=== PATIENT | male | born 1990 ===

== ENCOUNTER 2020-01-17 14:14 | Emergency (ER) | payer SELFPAY ==
[2020-01-17 14:47] VITALS: BP 150/78
--- NOTE | 2020-01-17 16:27 | Emergency Department Report ---
ED General Adult HPI - General Chief complaint: Dental/Oral Stated complaint: TOOTH PAIN Time Seen by Provider: 01/17/20 16:06 Source: patient Mode of arrival: Ambulatory Limitations: No Limitations - History of Present Illness Initial comments: 29-year-old -Tong[place] male patient presents with complaints of right upper dental pain x 9 days. Patient states at the start of his symptoms he was seen at [facility] ED and received a prescription for penicillin. Patient states his symptoms improved with the penicillin, however once he finished the p rescription 2 days ago his symptoms began to worsen. He rates his pain as a 8/10 in severity. He does report he is in the process of making a follow-up appointment with a dental specialist. He denies any fever/chills/sweats, facial swelling, or difficulty swallowing. -: Sudden - Related Data Previous Rx's Medication Instructions Recorded Last Taken Type Clindamycin [Clindamycin CAP] 300 mg PO Q6H 10 Days #40 capsule 01/17/20 Unknown Rx Ibuprofen [Motrin 800 MG tab] 800 mg PO Q8HR PRN #21 tablet 01/17/20 Unknown Rx Allergies Allergy/AdvReac Type Severity Reaction Status Date / Time No Known Allergies Allergy Unverified 01/17/20 14:46 ED Review of Systems ROS: Stated complaint: TOOTH PAIN Other details as noted in HPI Constitutional: denies: chills, fever ENT: dental pain. denies: throat pain Respiratory: denies: cough Gastrointestinal: denies: nausea, vomiting Skin: denies: rash, lesions Neurological: denies: headache ED Past Medical Hx - Social History Smoking Status: Never Smoker Substance Use Type: None - Medications Home Medications: Home Medications Medication Instructions Recorded Confirmed Last Taken Type Clindamycin [Clindamycin CAP] 300 mg PO Q6H 10 Days #40 capsule 01/17/20 Unknown Rx Ibuprofen [Motrin 800 MG tab] 800 mg PO Q8HR PRN #21 tablet 01/17/20 Unknown Rx ED Physical Exam - General Limitations: No Limitations General appearance: alert, in no apparent distress - Head Head exam: Present: atraumatic, normocephalic - Eye Eye exam: Present: normal appearance - Expanded ENT Exam Expanded Mouth exam: Absent: drooling, trismus, muffled voice Teeth exam: Present: dental caries 1 - Dental Tenderness (Deep dental caries noted with mild surrounding erythema, no swelling noted to gums or face) Throat exam: Negative: tonsillar erythema, tonsillomegaly - Neck Neck exam: Present: normal inspection. Absent: lymphadenopathy - Respiratory Respiratory exam: Absent: respiratory distress - Cardiovascular Cardiovascular Exam: Present: regular rate - Neurological Exam Neurological exam: Present: alert, oriented X3 - Psychiatric Psychiatric exam: Present: normal affect, normal mood - Skin Skin exam: Present: warm, dry, intact, normal color. Absent: rash ED Course Vital Signs 01/17/20 14:38 Temperature 98.0 F Pulse Rate 79 Respiratory 18 Rate Blood Pressure 150/78 O2 Sat by Pulse 100 Oximetry ED Medical Decision Making - Medical Decision Making Patient here with worsening right upper dental pain after finishing a penicillin prescription for dental infection. Given failure on penicillin, clindamycin prescribed and patient informed to follow-up immediately with his dental specialist. His vitals are normal, he is well-appearing, and stable for discharge home. Strict return precautions were discussed in detail with patient verbalizes understanding. Critical care attestation.: If time is entered above; I have spent that time in minutes in the direct care of this critically ill patient, excluding procedure time. ED Disposition Clinical Impression: Dental infection, Dental caries Disposition: DC-01 TO HOME OR SELFCARE Is pt being admited?: No Condition: Stable Instructions: Toothache (ED), Dental Abscess (ED) Additional Instructions: Please follow-up with your dental specialist within 2 days. Prescriptions: Clindamycin [Clindamycin CAP] 300 mg PO Q6H 10 Days #40 capsule Ibuprofen [Motrin 800 MG tab] 800 mg PO Q8HR PRN #21 tablet PRN Reason: pain
== END 2020-01-17 18:44 | disposition home or self-care (01) ==
LOC: ED 14:14
DX: K02.9 Dental caries, unspecified (principal)
CPT/HCPCS: 99282

== ENCOUNTER 2020-03-27 05:57 | Emergency (ER) | payer MEDICARE ==
[2020-03-27 07:33] VITALS: BP 142/89
[2020-03-27 07:58] LABS: Basophils % (Auto) 0.7 % (0.0-1.8); Eosinophils % (Auto) 0.9 % (0.0-4.3); Hematocrit 45.5 % (35.5-45.6); Hemoglobin 15.8 gm/dl (11.8-15.2); Lymphocytes # (Auto) 2.1 K/mm3 (1.2-5.4); Lymphocytes % (Auto) 40.2 % (13.4-35.0); Mean Corpuscular HGB Conc 35 % (32-34); Mean Corpuscular Volume 91 fl (84-94); Monocytes # (Auto) 0.7 K/mm3 (0.0-0.8); Monocytes % (Auto) 13.8 % (0.0-7.3); Platelet Count 162 K/mm3 (140-440); Red Blood Count 4.99 M/mm3 (3.65-5.03); Red Cell Distribution Width 14.1 % (13.2-15.2)
[2020-03-27 08:19] LABS: BUN/Creatinine Ratio 5; Blood Urea Nitrogen 5 mg/dL (9-20); Calcium 9.3 mg/dL (8.4-10.2); Hemolysis Index 10
[2020-03-27] MEDS ORDERED: LORazepam 2 MG/ML VIAL IM PRN (09:11)
[2020-03-27] MEDS ORDERED: ZIPRASIDONE MESYLATE 20 MG VIAL IM PRN (09:11)
--- NOTE | 2020-03-27 09:12 | Emergency Department Report ---
ED General Adult HPI - General Chief complaint: Psych Stated complaint: MH EVALUATION PUI?: No Time Seen by Provider: 03/27/20 09:04 Source: patient, RN notes reviewed Mode of arrival: Ambulatory Limitations: No Limitations - History of Present Illness Initial comments: The patient was evaluated in the emergency department for symptoms described in the history of present illness. He/she was evaluated in the context of the [facility] COVID-19 pandemic, which necessitated consideration that the patient might be at risk for infection with the virus that causes COVID-19. Institutional protocols and algorithms that pertain to the evaluation of patients at risk for COVID-19 are in a state of rapid change based on information released by regulatory bodies including the CDC and federal and state organizations. These policies and algorithms were followed during the patient's care in the emergency department. Please note that these policies, procedures and recommendations changed on a rapid basis. The patient is a 29-year-old gentleman. He is not known to myself previously. He has a history of paranoid schizophrenia. He presents to the ER today with complaint of painless auditory hallucinations, and wanting to kill himself. He denies physical pain. He denies access to guns, firearms. He denies loss of taste, loss of smell, cough, urinary symptoms, exposure to Covid. He denies intentional overdose. Symptoms present for the past day or so. They are constant, painless, do not radiate anywhere, and he endorses no exacerbating or relieving factors. He reports that he drove himself here in his own vehicle. He denies any stressors that he can recall. -: Gradual, days(s) Consistency: constant Improves with: none Worsens with: none Associated Symptoms: denies other symptoms - Related Data Home Medications Medication Instructions Recorded Confirmed Last Taken ALPRAZolam [Xanax TAB] 0.25 mg 03/27/20 Unknown risperiDONE [RisperDAL] 1 mg PO 03/27/20 Unknown Allergies Allergy/AdvReac Type Severity Reaction Status Date / Time No Known Allergies Allergy Unverified 01/17/20 14:46 ED Review of Systems ROS: Stated complaint: MH EVALUATION Other details as noted in HPI Comment: All other systems reviewed and negative Psychiatric: auditory hallucinations, suicidal thoughts. denies: visual hallucinations, homicidal thoughts ED Past Medical Hx - Past Medical History Previous Medical History?: Yes Hx Psychiatric Treatment: Yes (paranoid schizophrenia) - Surgical History Past Surgical History?: No - Social History Smoking Status: Never Smoker Substance Use Type: None - Medications Home Medications: Home Medications Medication Instructions Recorded Confirmed Last Taken Type ALPRAZolam [Xanax TAB] 0.25 mg 03/27/20 Unknown History risperiDONE [RisperDAL] 1 mg PO 03/27/20 Unknown History ED Physical Exam - General Limitations: No Limitations General appearance: alert, in no apparent distress - Head Head exam: Present: atraumatic, normocephalic - Eye Eye exam: Present: normal appearance, EOMI. Absent: nystagmus - ENT ENT exam: Present: normal exam, normal orophraynx, mucous membranes moist, normal external ear exam - Neck Neck exam: Present: normal inspection, full ROM. Absent: tenderness, meningismu s - Respiratory Respiratory exam: Present: normal lung sounds bilaterally. Absent: respiratory distress, wheezes, rales, rhonchi, stridor, decreased breath sounds - Cardiovascular Cardiovascular Exam: Present: regular rate, normal rhythm, normal heart sounds. Absent: bradycardia, tachycardia, irregular rhythm, systolic murmur, diastolic murmur, rubs, gallop - GI/Abdominal GI/Abdominal exam: Present: soft, normal bowel sounds. Absent: distended, tenderness, guarding, rebound, rigid, pulsatile mass - Rectal Rectal exam: Present: deferred - Extremities Exam Extremities exam: Present: normal inspection, full ROM, other (2+ pulses noted in the bilateral upper and lower extremities. There is no palpable cord. negative Homans sign. Muscular compartments are soft. The pelvis is stable.). Absent: pedal edema, calf tenderness - Back Exam Back exam: Present: normal inspection, full ROM, CVA tenderness (R). Absent: tenderness, CVA tenderness (L), paraspinal tenderness, vertebral tenderness - Neurological Exam Neurological exam: Present: alert, normal gait, other (No facial droop. Tongue midline. Extraocular movements intact bilaterally. Facial sensation intact to light touch in V1, V2, V3 distribution bilaterally. 5 and a 5 strength in 4 extremities. Sensation intact to light touch in 4 extremities.). Absent: motor sensory deficit - Psychiatric Psychiatric exam: Present: flat affect, suicidal ideation. Absent: homicidal ideation - Skin Skin exam: Present: warm, dry, intact, normal color. Absent: rash ED Course Vital Signs 03/27/20 03/27/20 07:30 09:37 Temperature 97.7 F Pulse Rate 64 Respiratory 24 18 Rate Blood Pressure 142/89 O2 Sat by Pulse 100 99 Oximetry ED Medical Decision Making - Lab Data Result diagrams: 03/27/20 07:46 03/27/20 07:46 Vital Signs 03/27/20 03/27/20 07:30 09:37 Temperature 97.7 F Pulse Rate 64 Respiratory 24 18 Rate Blood Pressure 142/89 O2 Sat by Pulse 100 99 Oximetry Labs 03/27/20 03/27/20 03/27/20 07:46 07:46 07:46 WBC RBC Hgb Hct MCV MCH MCHC RDW Plt Count Lymph % (Auto) [place] % (Auto) Eos % (Auto) Baso % (Auto) Lymph # (Auto) [place] # (Auto) Eos # (Auto) Baso # (Auto) Seg Neutrophils % Seg Neutrophils # Sodium 141 Potassium 4.2 Chloride 102.3 Carbon Dioxide 29 Anion Gap 14 BUN 5 L Creatinine 1.0 Estimated GFR > 60 BUN/Creatinine Ratio 5 Glucose 89 Calcium 9.3 Salicylates < 0.3 L Acetaminophen 5.0 L Plasma/Serum Alcohol 03/27/20 03/27/20 07:46 07:46 WBC 5.1 RBC 4.99 Hgb 15.8 H Hct 45.5 MCV 91 MCH 32 MCHC 35 H RDW 14.1 Plt Count 162 Lymph % (Auto) 40.2 H [place] % (Auto) 13.8 H Eos % (Auto) 0.9 Baso % (Auto) 0.7 Lymph # (Auto) 2.1 [place] # (Auto) 0.7 Eos # (Auto) 0.0 Baso # (Auto) 0.0 Seg Neutrophils % 44.4 Seg Neutrophils # 2.3 Sodium Potassium Chloride Carbon Dioxide Anion Gap BUN Creatinine Estimated GFR BUN/Creatinine Ratio Glucose Calcium Salicylates Acetaminophen Plasma/Serum Alcohol < 0.01 - Medical Decision Making Differential diagnosis, including but not limited to: Suicidal ideation, auditory hallucinations, paranoid schizophrenia, medical clearance for psychiatric placement Assessment and plan: 29-year-old gentleman, who was afebrile, with reassuring vital signs, clinically sober, with a GCS of 15, unremarkable physical examination, unremarkable neurologic examination, with a complaint of auditory hallucinations and suicidality. Physical exam benign, screening laboratory studies negative for emergent toxicologic/metabolic insult. Denies cough, fever, urinary symptoms. Urinalysis pending at this time, as part of our typical psychiatry protocol, however, clinically, I do not suspect a urinary tract infection. A psychiatric consultation is requested. I have also requested that nursing team reconcile patient's medications. At this point in time, patient does not appear to have an immediate medical contraindication to psychiatric admission, evaluation, consultation, and dis position as per their final recommendations. Critical care attestation.: If time is entered above; I have spent that time in minutes in the direct care of this critically ill patient, excluding procedure time. ED Disposition Clinical Impression: Medical clearance for psychiatric admission Disposition: [id number]/TX-[id number] PSY HOSP/PSY UNIT Is pt being admited?: No Does the pt Need Aspirin: No Condition: Good Referrals: PRIMARY CARE [Primary Care Provider] - 3-5 Days
[2020-03-27 12:08] LABS: Amphetamine Screen,Urine Negative; Benzodiazepines Screen,Urine Negative; Cannabinoid Screen,Urine Negative; Cocaine Screen,Urine Negative; Methadone Screen,Urine Negative; Opiate Screen,Urine Negative
[2020-03-27 12:11] LABS: Bilirubin,Urine NEG (Negative); Blood,Urine NEG (Negative); Color,Urine Straw (Yellow); Protein,Urine <15 mg/dL mg/dL (Negative); Urobilinogen,Urine < 2.0 mg/dL (<2.0)
[2020-03-27 12:30] LABS: WBC,Urine < 1.0 /HPF (0.0-6.0)
== END 2020-03-27 19:40 ==
LOC: EEVIPCON 05:57 → ED 05:57
DX: F20.0 Paranoid schizophrenia (principal); Z04.6 Encounter for general psychiatric examination, requested by authority; Z79.899 Other long term (current) drug therapy
CPT/HCPCS: 36415; 80048; 80307; 80320; 81001; 82550; 83735; 85025; G0480